=== PATIENT | female | born 1985 | race Caucasian/White ===

== ENCOUNTER → 2023-11-10 15:40 | Outpatient (REF) | payer BC, SELFPAY | LOC: HWRAD 15:40 | PROVIDERS: ATTENDING PHYSICIAN Internal Medicine | DX: R10.9 Unspecified abdominal pain (principal) | CPT/HCPCS: 72072 ==

== ENCOUNTER → 2024-06-16 10:58 | Outpatient (REF) | payer BC, SELFPAY | LOC: MRI 3T 10:58 | PROVIDERS: ATTENDING PHYSICIAN Internal Medicine | DX: R10.9 Unspecified abdominal pain (principal) | CPT/HCPCS: 72146 ==